=== PATIENT | male | born 1955 | race Caucasian/White ===

== ENCOUNTER → 2018-04-28 09:09 | Outpatient (CLI) | payer OTHER, SELFPAY ==
[2018-04-28 10:21] LABS: BUN Creatinine Ratio 15.5 (6-22); Blood Urea Nitrogen 17 mg/dL (9-20); Estimated Glomerular Filt Rate > 60.0 mL/min (>60)
== END ==
PROVIDERS: Visit Provider Physician Assistant Medical
DX: Z79.899 Other long term (current) drug therapy (principal)
CPT/HCPCS: 36415; 82565; 84520

== ENCOUNTER → 2018-05-02 06:47 | Outpatient (CLI) | payer OTHER, SELFPAY ==
--- NOTE | 2018-05-02 | DI.MRI.S_ITS ---
PROCEDURE: MR HEAD/BRAIN WO/W CON INDICATIONS: LEFT TRIGEMINAL NEURALGIA HEADACHE TECHNIQUE: Noncontrast sagittal T1 spin echo, axial T2 fast spin echo, axial FLAIR, axial gradient echo, axial diffusion and ADC through the brain. Axial/sagittal/coronal 3-D CISS, thin-slice axial T1 spin echo with fat saturation through the skull base. After the administration of contrast, axial and coronal thin-slice T1 spin echo with fat saturation through the skull base, axial T1 spin echo with fat saturation through the brain. COMPARISON: [facility], MR, MR BRAIN WO CON, 04/16/2015, 17:54. [facility], MR, MR CRANIAL NERVE W&WO CON, 07/17/2016, 7:34. FINDINGS: Image quality: Excellent. Cranial nerves: Cerebellopontine. Cranial nerves demonstrate no abnormal mass, enhancement or signal intensity. As previously noted vascular loops are adjacent to the bilateral fifth nerves likely superior cerebellar arteries. CSF spaces: Ventricles are normal in size and shape. No extra-axial fluid collections. Basal cisterns are patent. Brain: No intracranial bleeds or mass effects. No abnormal intracranial enhancement. Diffusion weighted images show no acute ischemic insults. Wise-white matter interface is intact. Brainstem is normal. Normal intravascular flow voids are present. Skull and face: Calvarial marrow signal is normal. Orbits appear normal. Sinuses: Sinuses and mastoids appear clear. IMPRESSION: 1. Stable interval exam demonstrating no abnormal signal, mass lesion or enhancement of the cranial nerves. 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 This is unchanged in appearance. Dictated by: Ana Cheema M.D. on 05/02/2018 at 10:08 Approved by: Ana Cheema M.D. on 05/02/2018 at 10:27
== END ==
PROVIDERS: Visit Provider Physician Assistant Medical
DX: G50.0 Trigeminal neuralgia (principal)
CPT/HCPCS: 70553

== ENCOUNTER → 2021-10-28 09:33 | Outpatient (CLI) | payer OTHER, SELFPAY ==
--- NOTE | 2021-10-28 | DI.RAD.S_ITS ---
PROCEDURE: XR WRIST LT MIN 3V INDICATIONS: left wrist pain TECHNIQUE: 3 views of the wrist were acquired. COMPARISON: None. FINDINGS: Bones: No fractures or dislocations. No suspicious bony lesions. Mild degenerative changes are present at the 1st CMC joint and the 1st IP joint. Soft tissues: No suspicious soft tissue calcifications. IMPRESSION: Mild degenerative change. Dictated by: Ashley Osborne M.D. on 10/28/2021 at 10:43 Approved by: Ashley Osborne M.D. on 10/28/2021 at 10:43
== END ==
PROVIDERS: PCP Family Medicine; Referring Provider Family Medicine; Visit Provider Family Medicine
DX: M25.532 Pain in left wrist (principal)
CPT/HCPCS: 73110